=== PATIENT | female | born 1985 | race Hispanic/Latino ===

== ENCOUNTER → 2021-08-04 | Day surgery (SDC) | payer BC ==
[~2021-08-04] MED LIST: FIBER PO; HYDROMORPHONE 1MG/1ML INJ ONE; ONDANSETRON HCL INJ 2MG/ML 2ML 2 MG/ML VIAL ONE
[2021-08-04 11:10] VITALS: BP 110/74
== END | disposition home or self-care (01) ==
LOC: OR 06:49
PROVIDERS: ATTEND Specialist
DX: S83.261A Peripheral tear of lateral meniscus, current injury, right knee, initial encounter (principal); M94.261 Chondromalacia, right knee; E66.01 Morbid (severe) obesity due to excess calories; E78.00 Pure hypercholesterolemia, unspecified; X58.XXXA Exposure to other specified factors, initial encounter; Z01.812 Encounter for preprocedural laboratory examination; Z20.822 Contact with and (suspected) exposure to COVID-19; Z79.899 Other long term (current) drug therapy; Z68.39 Body mass index [BMI] 39.0-39.9, adult
CPT/HCPCS: 29881; 81025; J0690; J1170; J2405; U0002

== ENCOUNTER → 2023-12-23 | Day surgery (SDC) | payer BC ==
[~2023-12-23] MED LIST changes: +ACETAMINOPHEN-1 EAC4 PO; +BUPIVACAINE HCL 0.5% INJ 30 ML VIAL INJ ONE; +DEXAMETHASONE SOD PHOS INJ 4 MG/ML SDV ONE; +FENTANYL CITRATE/PF 100MCG/2 ML INJ ONE; -HYDROMORPHONE 1MG/1ML INJ ONE; +LIDOCAINE HCL 2% LOCAL INJ 5 ML SDV VIAL INJ ONE; +METFORMIN HCL500 MG PO; +MIDAZOLAM HCL 2 MG/2 ML VIAL ONE; +MUPIROCIN 2% OINT 22 GM TUBE ONE; +OZEMPIC0.25 MG/02 SC; +PROPOFOL IV EMULSION 10 MG/ML 20 ML VIAL ONE; +SEVOFLURANE INHAL SOLN 250 ML PEN BTL ONE
[2023-12-23] MEDS: LACTATED RINGER'S 1,000 ML ONE (06:16)
[2023-12-23 07:25] LABS: ANION GAP 12.9 mmol/L (8-16); CALCIUM 8.9 mg/dL (8.4-10.2); CREATININE, SERUM 0.85 mg/dL (0.57-1.11); POTASSIUM 3.9 mmol/L (3.5-5.1)
[2023-12-23 07:30] VITALS: TEMP 97.4
[2023-12-23] MEDS: ACETAMINOPHEN/CODEINE 300MG - 30MG TAB ONE (08:00)
[2023-12-23 08:34] VITALS: BP 118/75; PULSE 68; RESP 18; O2SAT 98
== END | disposition home or self-care (01) ==
LOC: OR 05:10
PROVIDERS: ATTEND Plastic Surgery
DX: M65.331 Trigger finger, right middle finger (principal); E11.9 Type 2 diabetes mellitus without complications; E66.9 Obesity, unspecified; Z88.8 Allergy status to other drugs, medicaments and biological substances; Z01.812 Encounter for preprocedural laboratory examination; Z79.84 Long term (current) use of oral hypoglycemic drugs; Z79.85 Long-term (current) use of injectable non-insulin antidiabetic drugs
CPT/HCPCS: 26055; 36415; 80048; 81025; 93005; J0690; J1100; J2001; J2250; J2405; J2704; J3010; J7121